=== PATIENT | female | born 1985 | race Caucasian/White ===

== ENCOUNTER 2020-09-07 14:59 | Emergency (ER) | payer BC, OTHER ==
[2020-09-07 15:28] LABS: Pregnancy Test - Urine (BHCG) Negative (Negative)
[2020-09-07 15:29] LABS: Pregu Control Background? CLEAR/WHITE (CLR/WHITE); Pregu Control Bar Appear? YES (CONTROL BAR); Specific Gravity 1.021 (1.002-1.036)
[2020-09-07] MEDS ORDERED: Lorazepam 2 MG/ML VIAL ONE (15:31)
== END 2020-09-07 16:39 | disposition home or self-care (01) ==
LOC: MADERS 14:59
DX: F41.0 Panic disorder [episodic paroxysmal anxiety] (principal); F41.9 Anxiety disorder, unspecified
CPT/HCPCS: 81025; 96372; 99283; J2060